=== PATIENT | female | born 1950 | race Caucasian/White ===

== ENCOUNTER → 2016-08-25 | Outpatient (CLI) | payer OTHER | LOC: FIMAGING 10:42 | PROVIDERS: ATTEND Nurse Practitioner Obstetrics & Gynecology | DX: Z13.820 Encounter for screening for osteoporosis (principal); E07.9 Disorder of thyroid, unspecified; Z82.62 Family history of osteoporosis ==

== ENCOUNTER → 2016-11-16 | Outpatient (CLI) | payer OTHER | LOC: FIMAGING 07:58 | PROVIDERS: ATTEND Family Medicine | DX: Z12.31 Encounter for screening mammogram for malignant neoplasm of breast (principal) | CPT/HCPCS: G0202 ==

== ENCOUNTER 2017-09-12 10:30 | Day surgery (SDC) | payer OTHER, MEDICARE ==
--- NOTE | 2017-09-11 17:03 | GHP ---
[f rep st] PREOP HISTORY AND PHYSICAL DATE OF ADMISSION: 09/12/2017 CHIEF COMPLAINT: Left forefoot pain. HISTORY OF PRESENT ILLNESS: Patient is a 66 year old, history of progressive left forefoot pain. Blanca mcguire has been having increasing symptoms limiting her activities. PAST MEDICAL HISTORY: Positive for hypothyroid. MEDICINES: Azithromycin, [place] Thyroid, estradiol, morphine extended release, progesterone, and zol pidem. ALLERGIES: She lists no known drug allergies. SOCIAL HISTORY: Negative for tobacco use. PHYSICAL EXAM: GENERAL: She is alert and oriented x3. No acute distress. HEENT: Head is normocep halic. Pupils equal, round, reactive to light. Extraocular eye movements intact. NECK: Supple. N o JVD. No lymphadenopathy. CHEST: Clear to auscultation. HEART: Regular rate and rhythm. No mur murs or gallops. ABDOMEN: Soft, nontender, nondistended. GENITAL/RECTAL/BREASTS: Deferred. EXTRE MITIES: Reveals tenderness and diminished motion in her left 1st MTP joint. ASSESSMENT: Left hallux rigidus. PLAN: Patient is scheduled to undergo a left first metatarsophalangeal cheilectomy and debridement a nd implant hemiarthroplasty. /[id number]/MODL
[~2017-09-12 10:30] MED LIST: BUPIVACAINE 0.5% 30 ML SDV ONE
[2017-09-12] MEDS ORDERED: LIDOCAINE 1% 2 ML INJ ONE (10:56)
[2017-09-12] MEDS ORDERED: LR 1,000 ML IV ONE (10:58)
[2017-09-12] MEDS ORDERED: LIDOCAINE 1% 2 ML INJ ID PRN (10:58)
[2017-09-12] MEDS ORDERED: ceFAZolin 2 GM/DEXTROSE 100 ML IV ONE (11:00)
[2017-09-12 11:04] VITALS: PULSE 71
[2017-09-12] MEDS ORDERED: ceFAZolin 2 GM/SWFI 20 ML SYR IVP ONE (11:32)
[2017-09-12] MEDS ORDERED: ceFAZolin 2 GM/SWFI 2 GM/20 ML SYR IVP ONE (12:15)
[2017-09-12] MEDS ORDERED: MIDAZOLAM 2 MG/2 ML VIAL IVP ONE (13:12)
--- NOTE | 2017-09-12 13:12 | PDANEPAE ---
ANE Past Medical History - Cardiovascular History Hx Hypertension: No Hx Arrhythmias: No Hx Chest Pain: No Hx Coronary Artery / Peripheral Vascular Disease: No Hx CHF / Valvular Disease: No Hx Palpitations: No - Pulmonary History Hx COPD: No Hx Asthma/Reactive Airway Disease: No Hx Recent Upper Respiratory Infection: No Hx Oxygen in Use at Home: No Hx Sleep Apnea: No Sleep Apnea Screening Result - Last Documented: Negative - Neurologic History Hx Cerebrovascular Accident: No Hx Seizures: No Hx Dementia: No - Endocrine History Hx Diabetes: No Hypothyroid: Yes Hyperthyroid: No Obesity: no Endocrine History Comment: hypothyroid - Renal History Hx Renal Disorders: Yes Renal History Comment: R nephrectomy (donation) renal condition stable - Liver History Hx Hepatic Disorders: No - Neurological & Psychiatric Hx Hx Neurological and Psychiatric Disorders: No - Cancer History Hx Cancer: Yes Cancer History Comment: small basal cell upper lip excised - Congenital Disorder History Hx Congenital Disorders: No - GI History GERD: no Hx Gastrointestinal Disorders: No - Other Health History Other Health History: OA L great toe pain - Chronic Pain History Chronic Pain: Yes (L great toe) - Surgical History Prior Surgeries: R nephrectomy -donation '. L ACL. R rotator cuff. ovarian cystectomy. uterine ablation ANE Review of Systems Review of Systems: - Exercise capacity METS (RN): 4 METS ANE Patient History - Allergies Allergies/Adverse Reactions: bacitracin [Bacitracin] Allergy (Mild, Verified 08/29/17 10:58) Rash Penicillins Allergy (Mild, Verified 08/29/17 10:58) Rash - Home Medications Home Medications: [place] Thyroid 08/29/17 [Last Taken 09/12/17 06:30] Coq-10 08/29/17 [Last Taken 1 Week Ago ~09/05/17] Melatonin 08/29/17 [Last Taken 1 Week Ago ~09/05/17] Progesterone 08/29/17 [Last Taken 09/11/17] Vivelle-Dot 0.025MG (*) 08/29/17 [Last Taken 09/12/17] Flonase Nasal [place] 09/12/17 [Last Taken 09/12/17 06:30] - NPO status NPO Since - Liquids (Date): 09/12/17 NPO Since - Liquids (Time): 06:30 NPO Since - Solids (Date): 09/11/17 NPO Since - Solids (Time): 19:00 - Anes Hx Anes Hx: no prior problems - Smoking Hx Smoking Status: Never smoked ANE Labs/Vital Signs - Vital Signs Blood Pressure: 149/87 Heart Rate: 71 Respiratory Rate: 16 O2 Sat (%): 97 Height: 162.56 cm Weight: 74.843 kg ANE Physical Exam - Airway Neck exam: FROM Mallampati Score: Class 2 Mouth exam: normal dental/mouth exam - Pulmonary Pulmonary: no respiratory distress, no rales or rhonchi, clear to auscultation - Cardiovascular Cardiovascular: regular rate and rhythym, no murmur, rub, or gallop - ASA Status ASA Status: II ANE Anesthesia Plan Anesthesia Plan: MAC Total IV Anesthesia: Yes
[2017-09-12] MEDS ORDERED: MIDAZOLAM 2 MG/2 ML VIAL ONE (13:13)
[2017-09-12] MEDS ORDERED: fentaNYL 100 MCG/2 ML INJ ONE ×3 (13:17→15:19)
[2017-09-12] MEDS ORDERED: PROPOFOL/EMULSION 500 MG/50 ML BOTTLE IV ONE (13:18)
[2017-09-12] MEDS ORDERED: LIDOCAINE 2% 5 ML SDV ONE (13:19)
[2017-09-12] MEDS ORDERED: DEXAMETHASONE 4 MG/ML VIAL ONE (13:21)
[2017-09-12] MEDS ORDERED: LIDOCAINE 1% 300 MG/30 ML SDV ONE (13:25)
[2017-09-12] MEDS ORDERED: ACETAMINOPHEN 500 MG TAB PO PRN (13:55)
[2017-09-12] MEDS ORDERED: PROMETHAZINE HCL 25 MG/ML INJ IVP PRN (13:55)
[2017-09-12] MEDS ORDERED: HYDROCODONE/APAP 5/325 TAB PO PRN (13:55)
[2017-09-12] MEDS ORDERED: LR 500 ML IV PRN (13:55)
[2017-09-12] MEDS ORDERED: ONDANSETRON 4 MG/2 ML VIAL IVP PRN (13:55)
[2017-09-12] MEDS ORDERED: NALOXONE HCL 0.4 MG/ML INJ IVP PRN (13:55)
[2017-09-12] MEDS ORDERED: oxyCODONE IR 5 MG TAB PO PRN (13:55)
--- NOTE | 2017-09-12 14:08 | POSTOPPROG ---
Post Op Note Date of Operation: 09/12/17 Surgeon: Som Chavez Anesthesia: IV Sedation Pre-op Diagnosis: L Hallux Rigidus Post-op Diagnosis: Same Procedure: L 1st MTP cheilectomy/debidement, Implant hemiarthroplasty (Cartiva) Inf/Abcess present in the surg proc area at time of surgery?: No EBL: Minimal
[2017-09-12] MEDS ORDERED: oxyCODONE IR 5 MG TAB ONE (14:17)
[2017-09-12] MEDS: fentaNYL 100 MCG/2 ML INJ IVP PRN ×5 (14:19→15:20)
[2017-09-12] MEDS ORDERED: ENALAPRILAT DIHYDRATE 1.25 MG/ML VIAL ONE ×2 (14:58→15:24)
--- NOTE | 2017-09-12 14:59 | POSTANESTH ---
Post Anesthetic Evaluation Cardiovascular Status: Tx Hyper/Hypo-tension Respiratory Status: Normal, Stable Level of Consciousness/Mental Status: Can Participate in Eval Pain Control: Adequate, Prn Tx Ordered Nausea/Vomiting Control: Adequate, Prn Tx Ordered Complications Possibly Related to Anesthesia: None Noted
[2017-09-12] MEDS: ENALAPRILAT DIHYDRATE 1.25 MG/ML VIAL IVP PRN ×4 (15:03→15:35)
[2017-09-12] MEDS ORDERED: hydrALAZINE 20 MG/ML VIAL ONE (15:57)
[2017-09-12] MEDS: hydrALAZINE 20 MG/ML VIAL IVP PRN ×3 (16:05→16:31)
[2017-09-12 16:55] VITALS: O2SAT 95
[2017-09-12 17:19] VITALS: BP 146/76; RESP 16; TEMP 97.3
--- NOTE | 2017-09-13 02:30 | GOP ---
[f rep st] OPERATIVE REPORT DATE OF OPERATION: 09/12/2017 SURGEON: Som Chavez MD ANESTHESIA: IV sedation with ankle block. PREOPERATIVE DIAGNOSIS: Left hallux rigidus. POSTOPERATIVE DIAGNOSIS: Left hallux rigidus. PROCEDURE PERFORMED: 1. Left 1st metatarsophalangeal cheilectomy and debridement. 2. Left 1st metatarsophalangeal implant hemiarthroplasty (Cartiva). 3. Intraoperative use of fluoroscopy. FINDINGS: ESTIMATED BLOOD LOSS: Negligible. INDICATIONS: Patient is a 66-year-old with a history of progressive left forefoot pain. Clinically and radiographically, she is noted to have advanced hallux rigidus. Based on her persistence of symp toms, refractory to nonoperative treatment, she is interested in pursuing operative treatment. From an operative standpoint, options including arthrodesis and implant hemiarthroplasty were discussed wi th anticipated risks and benefits of both. Patient elected to pursue implant hemiarthroplasty. Zulema ent acknowledged she understood the potential risks of the operation, including, but not limited to, bleeding, infection, neurovascular damage, loss of limb or limb function, pain or functional limitati ons, despite operative treatment, implant failure necessitating revision, removal or conversion to ar throdesis, and anesthetic risks. She acknowledged she understood the potential risks, planned proced ure, and postoperative plan well, had all questions answered prior to surgery. She gave her consent for the operative procedure. DESCRIPTION OF PROCEDURE: The patient was brought to the operating after IV antibiotics were adminis tered. She was placed in a supine position. IV sedation was administered and an ankle block with 1% lidocaine, 0.5% Marcaine without epinephrine was administered. Tourniquet was placed on the left an kle and left foot was prepped and draped in standard sterile fashion. After marking the incision and Velasquez wrap exsanguination, tourniquet was inflated to 250. A longitudinal incision was made along the dorsal aspect of the 1st MTP joint. Skin and subcutaneous tissue were sharply incised. Sharp disse ction was carried medial to the EHL tendon, longitudinally through the capsule. The capsule was refl ected medially and laterally, exposing the joint. Advanced degenerative changes were noted. Utilizi ng a saw and rongeur, prominent osteophytes on the dorsal, medial, and lateral aspect of the metatars al head and proximal phalanx were removed. A guidepin from the Cartiva implant was placed in the gee tral aspect of the metatarsal head and position confirmed fluoroscopically. Based on intraoperative templating, a 10 mm reamer was utilized to create a trough in the metatarsal head. The Cartiva impla nt was placed remaining approximately 3 mm proud. Prior to implant placement, the toe was taken thro h a range of motion and any capsular adhesions were broken up. Full dorsiflexion and plantar flexi on were achieved. After implant insertion, similarly, full range of motion was achieved. Attention was directed toward closure. The capsule was loosely reapproximated with 2-0 Vicryl suture in interr upted fashion. Subcutaneous tissue was closed with 3-0 Vicryl suture in interrupted fashion. Skin w as closed with 4-0 nylon interrupted sutures. The wounds were dressed with sterile Adaptic, 4 x 4, a nd Kerlix. The patient tolerated the procedure well and was taken to the recovery room, extubated, i n stable condition postoperatively. All sponge, needle, and instrument counts were reported as being correct. DRAINS: None. COMPLICATIONS: None. PLAN: Patient will be discharged home. Weightbearing as tolerated in a postop shoe. /[id number]/MODL
== END 2017-09-12 17:12 | disposition home or self-care (01) ==
LOC: FSGY 10:30
PROVIDERS: ATTEND Orthopaedic Surgery Foot and Ankle Surgery
PROC: 0QBP0ZZ Excision of Left Metatarsal, Open Approach (ICD-10-PCS; principal; 2017-09-12 13:00)
PROC: 0SRN0JZ Replacement of Left Metatarsal-Phalangeal Joint with Synthetic Substitute, Open Approach (ICD-10-PCS; principal; 2017-09-12 13:00)
PROC: 0QBR0ZZ Excision of Left Toe Phalanx, Open Approach (ICD-10-PCS; principal; 2017-09-12 13:00)
DX: M20.22 Hallux rigidus, left foot (principal)
CPT/HCPCS: J0360; J0690; J1100; J2250; J2704; J3010

== ENCOUNTER → 2017-11-20 | Outpatient (CLI) | payer OTHER, MEDICARE | LOC: FIMAGING 09:46 | PROVIDERS: ATTEND Obstetrics & Gynecology | DX: Z12.31 Encounter for screening mammogram for malignant neoplasm of breast (principal); Z80.3 Family history of malignant neoplasm of breast ==

== ENCOUNTER → 2018-11-21 | Outpatient (CLI) | payer OTHER, MEDICARE | LOC: FIMAGING 08:46 ==

== ENCOUNTER → 2018-11-30 | Outpatient (CLI) | payer OTHER, MEDICARE | LOC: FIMAGING 10:37 ==